=== PATIENT | male | born 1950 | race Caucasian/White ===

== ENCOUNTER 2017-04-20 12:06 | Emergency (ER) | payer OTHER, MEDICARE ==
[~2017-04-20] VITALS: Ht 193 cm; Wt 113.6 kg
[2017-04-20] MEDS ORDERED: GABAPENTIN100 MG PO (13:24)
[2017-04-20] MEDS ORDERED: GLYBURID MCR3 MG PO (13:25)
[2017-04-20] MEDS ORDERED: ASPIRIN81 MG PO (13:25)
[2017-04-20] MEDS ORDERED: ATENOLOL50 MG PO (13:26)
[2017-04-20] MEDS ORDERED: HYDRALAZINE50 MG PO ×2 (13:26→13:30)
[2017-04-20] MEDS ORDERED: D 10001000 UNIT PO (13:27)
[2017-04-20] MEDS ORDERED: SLO-NIACIN500 MG PO (13:28)
[2017-04-20] MEDS ORDERED: AMLODIPINE5 MG PO (13:28)
[2017-04-20] MEDS ORDERED: SIMVASTATIN40 MG PO (13:29)
[2017-04-20] MEDS ORDERED: CETIRIZINE10 MG PO (13:30)
[2017-04-20] MEDS ORDERED: METFORMIN850 MG PO (13:30)
[2017-04-20] MEDS ORDERED: ANTIFUNGAL EX (13:31)
[2017-04-20] MEDS ORDERED: REFRESH TEAR0.5 % OU (13:32)
[2017-04-20] MEDS ORDERED: [UNRECOGNIZED DRUG - OTHER] OU (13:34)
[2017-04-20 13:43] VITALS: BP 156/68
== END 2017-04-20 13:44 | disposition short-term general hospital (02) | DRG 125 ==
LOC: ED 12:06
DX: H21.01 Hyphema, right eye (principal); I10 Essential (primary) hypertension; E11.9 Type 2 diabetes mellitus without complications; F17.210 Nicotine dependence, cigarettes, uncomplicated

== ENCOUNTER 2018-10-24 01:13 | Emergency (ER) | payer OTHER, MEDICARE ==
[~2018-10-24] VITALS: Ht 193 cm; Wt 111.4 kg
[~2018-10-24 01:13] MED LIST: AMLODIPINE5 MG PO; ANTIFUNGAL EX; ASPIRIN81 MG PO; ATENOLOL50 MG PO; CETIRIZINE10 MG PO; D 10001000 UNIT PO; GABAPENTIN100 MG PO; GLYBURID MCR3 MG PO; HYDRALAZINE50 MG PO; METFORMIN850 MG PO; REFRESH TEAR0.5 % OU; SIMVASTATIN40 MG PO; SLO-NIACIN500 MG PO; [UNRECOGNIZED DRUG - OTHER] OU
[2018-10-24] MEDS ORDERED: PRADAXA150 MG PO (01:30)
[2018-10-24] MEDS ORDERED: BUDEPRION150 MG PO (01:31)
[2018-10-24] MEDS ORDERED: PLAVIX75 MG PO (01:32)
[2018-10-24] MEDS ORDERED: ATORVASTATIN CA40 MG PO (01:33)
[2018-10-24] MEDS ORDERED: B-121000 MC1 PO (01:33)
[2018-10-24] MEDS ORDERED: HYDROCHLOROT25 MG PO (01:34)
[2018-10-24 02:25] VITALS: BP 140/64
== END 2018-10-24 02:26 | disposition home or self-care (01) | DRG 151 ==
LOC: ED 01:13
PROC: 2Y41X5Z Packing of Nasal Region using Packing Material (ICD-10-PCS; principal; 2018-10-24)
DX: R04.0 Epistaxis (principal); I10 Essential (primary) hypertension; E11.40 Type 2 diabetes mellitus with diabetic neuropathy, unspecified; E78.00 Pure hypercholesterolemia, unspecified; I25.2 Old myocardial infarction; F17.210 Nicotine dependence, cigarettes, uncomplicated; Z95.5 Presence of coronary angioplasty implant and graft

== ENCOUNTER 2018-10-24 15:06 | Emergency (ER) | payer OTHER, MEDICARE ==
[~2018-10-24] VITALS: Ht 193 cm; Wt 111.4 kg
[~2018-10-24 15:06] MED LIST changes: +ATORVASTATIN CA40 MG PO; +B-121000 MC1 PO; +BUDEPRION150 MG PO; +HYDROCHLOROT25 MG PO; +PLAVIX75 MG PO; +PRADAXA150 MG PO
[2018-10-24 17:30] VITALS: BP 128/62
== END 2018-10-24 17:33 | disposition home or self-care (01) | DRG 151 ==
LOC: ED 15:06
DX: R04.0 Epistaxis (principal); E11.40 Type 2 diabetes mellitus with diabetic neuropathy, unspecified; I10 Essential (primary) hypertension; E78.00 Pure hypercholesterolemia, unspecified; F17.210 Nicotine dependence, cigarettes, uncomplicated; I25.2 Old myocardial infarction; Z95.5 Presence of coronary angioplasty implant and graft; Z79.82 Long term (current) use of aspirin; Z79.02 Long term (current) use of antithrombotics/antiplatelets

== ENCOUNTER 2018-12-28 09:01 | Emergency (ER) | payer OTHER, MEDICARE ==
[~2018-12-28] VITALS: Ht 193 cm; Wt 110.0 kg
[2018-12-28] MEDS ORDERED: CILOSTAZOL100 MG PO (09:33)
[2018-12-28] MEDS ORDERED: PRADAXA150 MG PO (09:34)
[2018-12-28] MEDS ORDERED: GABAPENTIN100 MG PO (09:35)
[2018-12-28] MEDS ORDERED: GENTAMICIN0.1 % EX (09:37)
[2018-12-28] MEDS ORDERED: NICOTINE T21 MG/242 TD (09:39)
[2018-12-28 10:42] VITALS: BP 139/60
== END 2018-12-28 10:42 | disposition home or self-care (01) | DRG 151 ==
LOC: ED 09:01
DX: R04.0 Epistaxis (principal); I10 Essential (primary) hypertension; E11.40 Type 2 diabetes mellitus with diabetic neuropathy, unspecified; E78.00 Pure hypercholesterolemia, unspecified; I25.2 Old myocardial infarction; F17.210 Nicotine dependence, cigarettes, uncomplicated; Z95.5 Presence of coronary angioplasty implant and graft

== ENCOUNTER 2020-06-09 19:42 | Observation (INO) | payer OTHER, MEDICARE ==
[~2020-06-09] VITALS: Ht 162.6 cm; Wt 113.0 kg
[~2020-06-09 19:42] MED LIST changes: +CILOSTAZOL100 MG PO; +GENTAMICIN0.1 % EX; +NICOTINE T21 MG/242 TD
--- NOTE | 2020-06-09 19:47 | NUR ---
BY EMS TO ROOM
[2020-06-09 20:17] LABS: HEMATOCRIT 34.6 % (39.0-50.0); HEMOGLOBIN 10.9 g/dl (14.0-18.0); IMMATURE GRANULOCYTES 0.6 % (0.0-5.0); MEAN CELL VOLUME 88.3 fL CALC (80.0-100.0); MEAN CORPUSCULAR HGB 27.8 pG CALC (26.0-32.0); MEAN CORPUSCULAR HGB CONC 31.5 g/dL CAL (32.0-36.0); NEUT# 11.25 thou/uL (1.82-7.42); RED BLOOD COUNT 3.92 mill/uL (4.70-6.10); RED CELL DISTRI WIDTH 16.7 % (11.5-15.5)
--- NOTE | 2020-06-09 20:30 | NUR ---
RESTING QUIETLY AWAITING TEST RESULTS.
[2020-06-09 20:52] LABS: MYOGLOBIN 368 ng/mL (0 - 121)
--- NOTE | 2020-06-09 21:30 | NUR ---
NO CHANGE IN EXAM.
--- NOTE | 2020-06-09 21:45 | NUR ---
EKG REPEATED BY MD'S REQUEST A LOT OF MOVEMENT ON FIRST ONE
--- NOTE | 2020-06-09 22:30 | NUR ---
AWAITING CT RESULTS VSS NAD
[2020-06-09 22:40] LABS: URINE BILIRUBIN - DIPSTICK NEGATIVE (NEGATIVE); URINE COLOR YELLOW; URINE GLUCOSE - DIPSTICK NEGATIVE (NEGATIVE); URINE KETONE NEGATIVE (NEGATIVE); URINE PROTEIN - DIPSTICK TRACE mg/dL (NEG-TRACE); URINE UROBILINOGEN - DIPSTICK 0.2 E.U./dL (0.2)
[2020-06-09 22:41] LABS: URINE LEUK ESTERASE SMALL (NEGATIVE); URINE NITRITE - DIPSTICK POSITIVE (Negative)
[2020-06-09 22:42] LABS: URINE BLOOD DIPSTICK NEGATIVE (NEGATIVE)
[2020-06-09 22:44] LABS: ALBUMIN 3.9 g/dL (3.2-5.0); ALKALINE PHOSPHATASE 86 u/l (38-126); ANION GAP 13 (6-22 (CALC)); BILIRUBIN, TOTAL 0.5 mg/dL (0.0-1.4); BUN 14 mg/dL (8-23); BUN/CREATININE RATIO 12 (12-20 (CALC)); CARBON DIOXIDE 25 mmol/l (22-30); CHLORIDE 97 mmol/l (95-108); CREATININE 1.2 mg/dL (0.7-1.3); GFR 60 ML/MIN (>=60 (CALC)); GFR FOR AFR.AMER. > 60 ML/MIN (>=60 (CALC)); POTASSIUM 3.7 mmol/l (3.5-5.1); SGOT/AST 50 u/l (19-48); SODIUM 131 mmol/l (137-146); TOTAL PROTEIN 6.9 g/dL (6.3-8.2)
[2020-06-09 22:48] LABS: URINE BACTERIA MANY hpf; URINE EPITHELIAL CELLS MODERATE EPI/hpf (0-FEW); URINE WBC 50-100 WBC/hpf (0-5)
--- NOTE | 2020-06-09 23:30 | NUR ---
AWAITING DISPOSITION. NO SIGNIFICANT CHANGE NOTED.
[2020-06-10] VITALS (8 sets, daily range): BP systolic 102–161; BP diastolic 50–82
--- NOTE | 2020-06-10 00:30 | NUR ---
C/O DYSURIA. WILL OBTAIN BLADDER SCANNER.
--- NOTE | 2020-06-10 01:10 | NUR ---
Admission Note Report Given to: ZANDRA OTERO Transported by: Wheelchair X Stretcher Transported with: X Nurse Transporter X Patent IV O2 X Blueprint Reproducer Location: ICU X MS2
--- NOTE | 2020-06-10 01:40 | NUR ---
UOP 1400 CC CLEAR YELLOW URINE. TAKEN BY STRETCHER TO ROOM 270.
--- NOTE | 2020-06-10 01:40 | NUR ---
BY STRETCHER TO FLOOR.
--- NOTE | 2020-06-10 02:00 | NUR ---
[id number]. ARRIVED TO THE FLOOR VIA STRETCHER ACCOMPANIED BY ER NURSE, ZANDRA ALVAREZ. PT. VERY WEAK AND WITH UNSTEADY GAIT AND IS UNABLE TO STAND FOR VERY LONG; ONLY ABLE TO OBTAIN ORTHOSTATICS LAYING AND SITTING;SEE DOCUMENTATION. PT. IS A/A/O X3 AND REPORTS FALLING MULTIPLE TIMES IN THE LAST WEEK OR SO, BUT DOES REPORT HAVING HX OF BALANCE ISSUES. PT. ALSO REPORTS THAT HE HAS HAD WEAKNESS TO BLE WITH ONSET YESTERDAY; PT. IS ABLE TO MOVE ALL EXTREMETIES WITHOUT DIFFICULTIES NOTED. PT. IS EDUCATED ON FALL PRECAUTIONS AND INSTRUCTED TO CALL FOR ALL OOB NEEDS AND BED ALARM SET WELL. GRANDA CATHETER INTACT AND DRAINAING AT GRAVITY LEVEL. GRANDA PLACED IN ED PRIOR TO ARRIVAL TO THE FLOOR. PT. EDUCATED ON POC, CALL LIGHT, AND ROOM; VERBALIZES UNDERSTANDING. SKIN TEAR NOTED TO LEFT HAND AND PHOTO OBTAINED AND COVERED WITH TELFA AND KERLEX; BRUISING ALSO NOTED TO LEFT ARM AND RIGHT BUTTOCK; MULTIPLE SCABS NOTED TO BLE. PT. DENIES PAIN. SNACK AND PO FLUIDS OFFERED. ENCOURAGED TO CALL FOR ANY NEEDS. CALL LIGHT IS IN REACH. WILL CONTINUE TO MONITOR.
[2020-06-10 05:22] LABS: HEMATOCRIT 34.9 % (39.0-50.0); HEMOGLOBIN 11.2 g/dl (14.0-18.0); IMMATURE GRANULOCYTES 0.5 % (0.0-5.0); MEAN CELL VOLUME 87.9 fL CALC (80.0-100.0); MEAN CORPUSCULAR HGB 28.2 pG CALC (26.0-32.0); MEAN CORPUSCULAR HGB CONC 32.1 g/dL CAL (32.0-36.0); NEUT# 11.46 thou/uL (1.82-7.42); RED BLOOD COUNT 3.97 mill/uL (4.70-6.10); RED CELL DISTRI WIDTH 16.7 % (11.5-15.5)
--- NOTE | 2020-06-10 05:35 | NUR ---
PT. ASSISTED WITH X2 STAFF TO SIT UP ON THE SIDE OF THE BED. BED ALARM ON. CALL LIGHT IS IN REACH.
[2020-06-10 05:56] LABS: ALBUMIN 3.8 g/dL (3.2-5.0); ALKALINE PHOSPHATASE 82 u/l (38-126); ANION GAP 12 (6-22 (CALC)); BILIRUBIN, TOTAL 0.6 mg/dL (0.0-1.4); BUN 13 mg/dL (8-23); BUN/CREATININE RATIO 11 (12-20 (CALC)); CARBON DIOXIDE 29 mmol/l (22-30); CHLORIDE 94 mmol/l (95-108); CREATININE 1.2 mg/dL (0.7-1.3); GFR 60 ML/MIN (>=60 (CALC)); GFR FOR AFR.AMER. > 60 ML/MIN (>=60 (CALC)); POTASSIUM 3.3 mmol/l (3.5-5.1); SGOT/AST 32 u/l (19-48); SODIUM 131 mmol/l (137-146); TOTAL PROTEIN 6.8 g/dL (6.3-8.2)
--- NOTE | 2020-06-10 07:40 | NUR ---
REPORT RECEIVED FROM ZANDRA OTERO. PT RESTING IN BED ATTEMPTING TO SIT UP FOR BREAKFAST; ASSISTED TO SITTING POSITION ON EDGE OF BED WITH FEET ON THE FLOOR WITH ONE PERSON MAX ASSIST. PT HAVING DIFFICULTY WITH BALANCE AND POSTURE REMAINING IN SITTING POSITION, BUT EVENTUALLY SITS UP WELL FOR BREAKFAST. VSS. TEMP 99.8. PT IS ALERT AND ORIENTED. DENIES PAIN, BUT C/O SOME DISCOMFORT TO BUTTOCK FROM LAYING IN BED; PT REMINDED TO TURN AND REPOSITION HIMSELF FREQUENTLY. RESPIRATIONS EVEN AND UNLABORED ON OXYGEN 2L VIA NC. PLAN OF CARE REVIEWED. PT ENCOURAGED TO VERBALIZE CONCERNS. STATES UNDERSTANDING. SAFETY MEASURES IN PLACE. CALL LIGHT WITHIN REACH.
--- NOTE | 2020-06-10 08:45 | NUR ---
DR. DAY AT BEDSIDE. LUNGS ARE COURSE; HR IRREGLAR. ABDOMEN DISTENDED AND SOFT WITH SOME TENDERNESS OVER BLADDER. GRANDA DRAINING TEA COLORED URINE IN ADEQUATE AMOUNTS. PT HAS HAD BURNING AND DIFFICULTY URINATING FOR THE LAST FEW DAYS. MD DISCUSSED PLAN OF CARE INCLUDING CONTINUEING ANTIBIOTICS AND HYDRATION. PT STATES UNDERSTANDING.
--- NOTE | 2020-06-10 13:01 | NUR ---
Patient is screened for rehab intervention and no needs are identified at this time`
--- NOTE | 2020-06-10 13:55 | NUR ---
REPOSITIONED UP INTO CHAIR WITH 2 PERSON MAX ASSIST; PARTIAL BATH PROVIDED AND LINENS CHANGED. POTASSIUM REPLACED PO AND MAG REPLACED IV. IV FLUIDS INITIATED TODAY INFUSE WITHOUT DIFFICULTY; EMS IV SITE APPEARS HEALTHY AND FLUSHES. PT RECEIVED LEVAQUIN AND TOLERATED MEDICATION WELL.
--- NOTE | 2020-06-10 17:17 | NUR ---
SITTING UP IN CHAIR; ALERT AND ORIENTED. CONTINUES TO DENY PAIN. NO REQUESTS OR CONCERNS AT THIS TIME.
--- NOTE | 2020-06-10 19:28 | NUR ---
PT. SITTING UP IN THE RECLINER WITH NO DISTRESS NOTED. DENIES NEEDS/PAIN. GRANDA CATHETER DRAINING AT GRAVITY LEVEL APPEARS KATINA COLORED WITH SEDIMENTS NOTED TO TUBING. IV SITE PATENT WITH ORDERED IVF INFUSING. UNABLE TO OBTAIN ORTHOSTATIC B/P R/T PT. BEING UNABLE TO STAND FOR THEM. VOICES NO COERNS. RE-EDUCATED ON NEEDS TO CALL FOR ALL OOB NEEDS; VERBALIZES UNDERSTANDING. CALL LIGHT IS IN REACH.
--- NOTE | 2020-06-10 20:20 | NUR ---
NEW IV SITE STARTED TO RFA X2 ATTEMPT AND EMS SITE REMOVED WITH CATHETER TIP INTACT. TOLERATED WELL. ASSSITED BACK INTO BED WITH 2 STAFF ASST.
--- NOTE | 2020-06-10 23:00 | NUR ---
RESTING IN BED WITH EYES CLOSED; RESP. EVEN AND UNLABORED. NO DISTRESS NOTED; BED ALARM FOR SAFETY; CALL LIGHT IS IN REACH.
[2020-06-11] VITALS (9 sets, daily range): BP systolic 86–115; BP diastolic 50–72
--- NOTE | 2020-06-11 04:30 | NUR ---
PT. ASSISTED TO SIT INTO HIGH FOWLERS POSITION IN BED AND COFFEE PROVIDED. DENIES NEEDS. CALL LIGHT IS IN REACH.
[2020-06-11 05:24] LABS: HEMATOCRIT 32.3 % (39.0-50.0); HEMOGLOBIN 10.3 g/dl (14.0-18.0); MEAN CELL VOLUME 88.3 fL CALC (80.0-100.0); MEAN CORPUSCULAR HGB 28.1 pG CALC (26.0-32.0); MEAN CORPUSCULAR HGB CONC 31.9 g/dL CAL (32.0-36.0); RED BLOOD COUNT 3.66 mill/uL (4.70-6.10); RED CELL DISTRI WIDTH 16.8 % (11.5-15.5)
[2020-06-11 05:46] LABS: ALKALINE PHOSPHATASE 68 u/l (38-126); ANION GAP 11 (6-22 (CALC)); BILIRUBIN, TOTAL 0.7 mg/dL (0.0-1.4); BUN 17 mg/dL (8-23); BUN/CREATININE RATIO 14 (12-20 (CALC)); CARBON DIOXIDE 24 mmol/l (22-30); CHLORIDE 100 mmol/l (95-108); CREATININE 1.2 mg/dL (0.7-1.3); GFR 60 ML/MIN (>=60 (CALC)); GFR FOR AFR.AMER. > 60 ML/MIN (>=60 (CALC)); SGOT/AST 20 u/l (19-48); SODIUM 132 mmol/l (137-146); TOTAL PROTEIN 5.6 g/dL (6.3-8.2)
--- NOTE | 2020-06-11 07:30 | NUR ---
REPORT RECEIVED FROM ZANDRA OTERO. PT CALLING FOR NURSE; INCONTINENT OF SOME BM; ASSISTED TO BSC FOR LARGE BM; AM CARE PROVIDED AND LINENS CHANGED. DENIES PAIN. RESPIRATIONS EVEN AND UNLABORED ON ROOM AIR; SPO2 94%. IV FLUIDS INFUSING WITHOUT DIFFICULTY; IV SITE APPEARS HEALTHY. GRANDA DRAINING KATINA CLOUDY URINE. PT STRONGER TODAY AND ABLE TO SIT HIMSELF UP ON EDGE OF BED WITHOUT ASSISTANCE. PLAN OF CARE REIVEWED. ENCOURAGED TO VERBALIZE CONCERNS. STATES UNDERSTANDING. SAFETY MEASURES IN PLACE. CALL LIGHT WITHIN REACH.
--- NOTE | 2020-06-11 09:38 | NUR ---
BP 100/38 HR 82. SCHEDULED ATENOLOL GIVEN; PO HYDRALAZINE AND AMLODIPINE HELD. PT RESTING IN BED ON RIGHT SIDE. REPORTS POOR APETITE THIS MORNING. LEVAQUIN INFUSING; IV SITE APPEARS HEALTHY.
--- NOTE | 2020-06-11 10:45 | NUR ---
PHYSICAL THERAPY AT BEDSIDE; PT AMBULATED WITH WALKER AND STANDBY ASSIST DOWN HALLWAY AND BACK. HYPOTENSIVE AFTER AMULATION.
--- NOTE | 2020-06-11 11:00 | NUR ---
HOME MEDS SENT TO PHARMACY.
--- NOTE | 2020-06-11 11:20 | NUR ---
ORTHOSTATIC VS OBTAINED AND NEGATIVE. SUPINE 95/58 SITTING 95/58 STANDING 99/60.
--- NOTE | 2020-06-11 11:49 | NUR ---
pt was seen for gait training and therex. Supine to sitting on EOB independently. Sit to stand at RW with CGA then ambulated down hallway 50ft x2. No LOB occured. Then performed standing heel raises 2x10, mini squats 2x10, standing hamstring curl 1x10, LAQ 2x10, hip adduction with pillow 2x10, hip abd with resistance 2x10. 02 levels between 92-99% throughout treatment. ampac=16
--- NOTE | 2020-06-11 12:02 | NUR ---
GRANDA REMOVED; PT TOLERATED WELL. URINAL PROVIDED. POTASSIUM REPLACEMENT GIVEN PO IN APPLESAUCE. PT SITTING UP ON EDGE OF BED TALKING TO ON CELL PHONE. UPDATED ON POTENTIAL DISCHARGE PLANS FOR TOMORROW.
--- NOTE | 2020-06-11 15:15 | NUR ---
VOIDED 25 ML OF CLOUDY DARK YELLOW URINE IN URINAL. WILL CONTINUE TO MONITOR OUTPUT. PT DRINKING WATER.
--- NOTE | 2020-06-11 20:21 | NUR ---
PT. SITTING UP ON THE SIDE OF THE BED WITH NO RESP. DISTRESS NOTED. DENIES NEEDS/PAIN. SCHED MEDS GIVEN AND SNACK PROVIDED. ASSESSMENT COMPLETED. IV SITE PATENT AND ORDERED IVF INFUSING WELL. UPDATED ON POC. ENCOURAGED TO CALL FOR ANY NEEDS. CALL LIGHT IS IN REACH.
--- NOTE | 2020-06-11 21:40 | NUR ---
PT. VOIDED 300MLS AND BLADDER SCANNED AND PVR IS 305MLS. WILL CONTINUE TO MONITOR.
--- NOTE | 2020-06-11 23:59 | NUR ---
PT. RESTING IN BED WITH EYES CLOSED; RESP EVEN AND UNLABORED. CALL LIGHT IS IN REACH.
--- NOTE | 2020-06-12 03:47 | NUR ---
RESTING IN BED WITH EYES CLOSED; NO DISTRESS NOTED.
[2020-06-12 04:15] VITALS: BP 112/64
--- NOTE | 2020-06-12 05:25 | NUR ---
BLADDER SCANNED AND SHOWING 485MLS THEN PT. VOIDED 200MLS OF CLEAR YELLOW URINE AND BLADDER SCANNED AND PVR IS 238MLS.
[2020-06-12 05:53] LABS: HEMATOCRIT 35.2 % (39.0-50.0); MEAN CELL VOLUME 89.8 fL CALC (80.0-100.0); MEAN CORPUSCULAR HGB 28.1 pG CALC (26.0-32.0); MEAN CORPUSCULAR HGB CONC 31.3 g/dL CAL (32.0-36.0); RED BLOOD COUNT 3.92 mill/uL (4.70-6.10); RED CELL DISTRI WIDTH 16.9 % (11.5-15.5)
[2020-06-12 06:14] LABS: BUN 22 mg/dL (8-23); BUN/CREATININE RATIO 17 (12-20 (CALC)); CARBON DIOXIDE 23 mmol/l (22-30); CHLORIDE 100 mmol/l (95-108); CREATININE 1.3 mg/dL (0.7-1.3); GFR 54 ML/MIN (>=60 (CALC)); GFR FOR AFR.AMER. > 60 ML/MIN (>=60 (CALC)); SODIUM 133 mmol/l (137-146)
[2020-06-12 06:41] LABS: ANION GAP 14 (6-22 (CALC)); MAGNESIUM 2.3 mg/dL (1.6-2.3)
[2020-06-12 08:03] VITALS: BP 148/66
--- NOTE | 2020-06-12 08:03 | NUR ---
PT SITTING ON THE SIDE OF THE BED. A&O X3. NO DISTRESS NOTED. PT REPORTS TO BE FEELING WELL THIS MORNING. ASSESSMENT COMPLETED. DISCUSSED POC. CALL LIGHT IN REACH. CONTINUE TO MONITOR.
[2020-06-12] MEDS ORDERED: BACTRIM DS1 TAB PO (10:20)
[2020-06-12 12:00] VITALS: BP 108/46
--- NOTE | 2020-06-12 12:53 | NUR ---
D/C INSTRUCTIONS GIVEN TO PT AND SPOUSE. BOTH VERBALIZED UNDERSTANDING. IV INTACT UPON REMOVAL.
--- NOTE | 2020-06-12 13:02 | NUR ---
Discharge instructions given. Patient verbalizes understanding of same. Discharged in stable condition via Wheelchair to Home with spouse and staff. All belongings sent with pt.
--- NOTE | 2020-06-12 13:03 | NUR ---
Pt was seen for therex and gait training. Pt was sitting on EOB upon entering room. Independent sit to stand at RW for gait training. Pt ambulated 60ft x2 with SBA. Then performed standing heel raises 2x10, marching 2x10, LAQ with DF 2x10, hip abduction with resistance 2x10, hip adduction 2x10, seated heel raises with manual resistance 2x10, standing hip ext 1x10. ampac=17
== END 2020-06-12 13:02 | disposition home or self-care (01) | DRG 690 ==
LOC: ED 19:42 → ED-I 06-10 → ED 06-10 01:21 → MS2 06-10 01:22
PROVIDERS: Emergency Medicine; Nurse Practitioner; Nurse Practitioner Family; ADMIT Internal Medicine; ATTEND Internal Medicine
PROC: 0T9B70Z Drainage of Bladder with Drainage Device, Via Natural or Artificial Opening (ICD-10-PCS; principal; 2020-06-09)
DX: N39.0 Urinary tract infection, site not specified (principal); E87.1 Hypo-osmolality and hyponatremia; I48.20 Chronic atrial fibrillation, unspecified; E87.6 Hypokalemia; E83.42 Hypomagnesemia; R33.9 Retention of urine, unspecified; I10 Essential (primary) hypertension; I25.10 Atherosclerotic heart disease of native coronary artery without angina pectoris; E11.40 Type 2 diabetes mellitus with diabetic neuropathy, unspecified; J44.9 Chronic obstructive pulmonary disease, unspecified; E78.5 Hyperlipidemia, unspecified; S80.812A Abrasion, left lower leg, initial encounter; S80.811A Abrasion, right lower leg, initial encounter; F17.200 Nicotine dependence, unspecified, uncomplicated; I25.2 Old myocardial infarction; B96.20 Unspecified Escherichia coli [E. coli] as the cause of diseases classified elsewhere; X58.XXXA Exposure to other specified factors, initial encounter; Z95.5 Presence of coronary angioplasty implant and graft; Z79.01 Long term (current) use of anticoagulants; Z86.14 Personal history of Methicillin resistant Staphylococcus aureus infection; Z79.84 Long term (current) use of oral hypoglycemic drugs; Z20.828 Contact with and (suspected) exposure to other viral communicable diseases
CPT/HCPCS: G0378; J1956; J3475; Q9967

== ENCOUNTER 2020-08-24 15:57 | Emergency (ER) | payer OTHER, MEDICARE ==
[~2020-08-24] VITALS: Ht 167.6 cm; Wt 108.6 kg
[~2020-08-24 15:57] MED LIST changes: +BACTRIM DS1 TAB PO
[2020-08-24 19:07] VITALS: BP 146/66
== END 2020-08-24 20:18 | disposition home or self-care (01) | DRG 921 ==
LOC: ED 15:57
PROC: 0HQ2XZZ Repair Right Ear Skin, External Approach (ICD-10-PCS; principal; 2020-08-24)
DX: L76.21 Postprocedural hemorrhage of skin and subcutaneous tissue following a dermatologic procedure (principal); C44.202 Unspecified malignant neoplasm of skin of right ear and external auricular canal; I10 Essential (primary) hypertension; E11.40 Type 2 diabetes mellitus with diabetic neuropathy, unspecified; I48.91 Unspecified atrial fibrillation; F17.210 Nicotine dependence, cigarettes, uncomplicated; I25.2 Old myocardial infarction; Y83.8 Other surgical procedures as the cause of abnormal reaction of the patient, or of later complication, without mention of misadventure at the time of the procedure; Z95.5 Presence of coronary angioplasty implant and graft; Z79.84 Long term (current) use of oral hypoglycemic drugs

== ENCOUNTER 2021-03-05 | Emergency (ER) | payer OTHER, MEDICARE | END 2021-03-06 00:20 | disposition home or self-care (01) | DRG 605 | DX: S91.114A Laceration without foreign body of right lesser toe(s) without damage to nail, initial encounter (principal); I10 Essential (primary) hypertension; E11.40 Type 2 diabetes mellitus with diabetic neuropathy, unspecified; E78.00 Pure hypercholesterolemia, unspecified; I48.91 Unspecified atrial fibrillation; F17.200 Nicotine dependence, unspecified, uncomplicated; I25.2 Old myocardial infarction; W45.8XXA Other foreign body or object entering through skin, initial encounter; Y93.I9 Activity, other involving external motion; Y92.009 Unspecified place in unspecified non-institutional (private) residence as the place of occurrence of the external cause; Z95.5 Presence of coronary angioplasty implant and graft ==

== ENCOUNTER 2021-07-08 16:09 | Emergency (ER) | payer OTHER, MEDICARE ==
[~2021-07-08] VITALS: Ht 193 cm; Wt 104.0 kg
[2021-07-08] MEDS ORDERED: ZITHROMAX250 MG PO ×2 (21:53→22:41)
[2021-07-08 23:37] VITALS: BP 124/60
== END 2021-07-08 23:37 | disposition home or self-care (01) | DRG 195 ==
LOC: ED 16:09
DX: J18.9 Pneumonia, unspecified organism (principal); I10 Essential (primary) hypertension; E11.40 Type 2 diabetes mellitus with diabetic neuropathy, unspecified; I48.91 Unspecified atrial fibrillation; E78.00 Pure hypercholesterolemia, unspecified; I25.2 Old myocardial infarction; F17.200 Nicotine dependence, unspecified, uncomplicated; Z95.5 Presence of coronary angioplasty implant and graft; Z79.84 Long term (current) use of oral hypoglycemic drugs; Z20.822 Contact with and (suspected) exposure to COVID-19

== ENCOUNTER 2022-06-07 18:51 | Emergency (ER) | payer OTHER, MEDICARE ==
[~2022-06-07] VITALS: Ht 193 cm; Wt 102.0 kg
[~2022-06-07 18:51] MED LIST changes: +ZITHROMAX250 MG PO
[2022-06-07 19:40] LABS: IMMATURE GRANULOCYTES 0.2 % (0.0-5.0); MEAN CORPUSCULAR HGB 29.1 pG CALC (26.0-32.0); MEAN CORPUSCULAR HGB CONC 33.3 g/dL CAL (32.0-36.0); NEUT# 3.64 thou/uL (1.82-7.42); RED BLOOD COUNT 3.09 mill/uL (4.70-6.10); RED CELL DISTRI WIDTH 17.3 % (11.5-15.5)
[2022-06-07 19:41] LABS: MEAN CELL VOLUME 87.4 fL CALC (80.0-100.0)
[2022-06-07 19:53] LABS: ALBUMIN 3.7 g/dL (3.2-5.0); ALKALINE PHOSPHATASE 78 u/l (38-126); ANION GAP 11 (6-22 (CALC)); BILIRUBIN, TOTAL 0.3 mg/dL (0.0-1.4); BUN 21 mg/dL (8-23); BUN/CREATININE RATIO 16 (12-20 (CALC)); CARBON DIOXIDE 25 mmol/l (22-30); CHLORIDE 100 mmol/l (95-108); CREATININE 1.3 mg/dL (0.7-1.3); GFR FOR AFR.AMER. > 60 ML/MIN (>=60 (CALC)); GFR OTHER RACES 54 ML/MIN (>=60 (CALC)); SGOT/AST 13 u/l (19-48); SODIUM 133 mmol/l (137-146); TOTAL PROTEIN 6.9 g/dL (6.3-8.2)
[2022-06-07] MEDS ORDERED: KLOR-CON M2020 MEQ PO (20:10)
[2022-06-07] MEDS ORDERED: BACTRIM DS1 TAB PO (20:10)
[2022-06-07] MEDS ORDERED: OMNICEF300 MG PO (20:10)
[2022-06-07 20:30] VITALS: BP 128/53
== END 2022-06-07 20:30 | disposition home or self-care (01) | DRG 603 ==
LOC: ED 18:51
PROVIDERS: Nurse Practitioner
DX: L03.116 Cellulitis of left lower limb (principal); H60.11 Cellulitis of right external ear; E11.621 Type 2 diabetes mellitus with foot ulcer; L97.529 Non-pressure chronic ulcer of other part of left foot with unspecified severity; I10 Essential (primary) hypertension; E11.40 Type 2 diabetes mellitus with diabetic neuropathy, unspecified; I25.10 Atherosclerotic heart disease of native coronary artery without angina pectoris; I48.91 Unspecified atrial fibrillation; F10.10 Alcohol abuse, uncomplicated; F17.200 Nicotine dependence, unspecified, uncomplicated; Z95.5 Presence of coronary angioplasty implant and graft

== ENCOUNTER 2022-12-07 21:30 | Emergency (ER) | payer OTHER, MEDICARE ==
[~2022-12-07] VITALS: Ht 193 cm; Wt 102.0 kg
[~2022-12-07 21:30] MED LIST changes: +KLOR-CON M2020 MEQ PO; +OMNICEF300 MG PO
[2022-12-07 21:43] VITALS: BP 134/58
[2022-12-07 21:46] VITALS: BP 127/53
[2022-12-07 22:00] VITALS: BP 128/59
[2022-12-07 22:16] VITALS: BP 128/59
[2022-12-07] MEDS ORDERED: OMNI-PAC300 MG PO (22:20)
== END 2022-12-07 22:29 | disposition home or self-care (01) | DRG 605 ==
LOC: ED 21:30
PROC: 0HQCXZZ Repair Left Upper Arm Skin, External Approach (ICD-10-PCS; principal; 2022-12-07)
DX: S41.112A Laceration without foreign body of left upper arm, initial encounter (principal); W01.0XXA Fall on same level from slipping, tripping and stumbling without subsequent striking against object, initial encounter; E11.40 Type 2 diabetes mellitus with diabetic neuropathy, unspecified; Z79.84 Long term (current) use of oral hypoglycemic drugs; I25.2 Old myocardial infarction; Z95.5 Presence of coronary angioplasty implant and graft; I48.91 Unspecified atrial fibrillation; I10 Essential (primary) hypertension; Z85.828 Personal history of other malignant neoplasm of skin

== ENCOUNTER 2023-01-31 12:08 | Inpatient (IN) | payer OTHER, MEDICARE ==
[~2023-01-31] VITALS: Ht 193 cm; Wt 107.2 kg
[2023-01-31] VITALS (71 sets, daily range): BP systolic 73–140; BP diastolic 41–84
[~2023-01-31 12:08] MED LIST changes: +OMNI-PAC300 MG PO
[2023-01-31 13:53] LABS: BASO% 0.1 % (0-3); EOS% 0.2 % (0-8); HEMATOCRIT 25.5 % (39.0-50.0); HEMOGLOBIN 7.9 g/dl (14.0-18.0); IMMATURE GRANULOCYTES 0.6 % (0.0-5.0); LYMPH% 10.2 % (15-41); MEAN CORPUSCULAR HGB 28.6 pG CALC (26.0-32.0); MONO% 8.6 % (2-13); NEUT# 6.45 thou/uL (1.82-7.42); NEUT% 80.3 % (42-76); RED BLOOD COUNT 2.76 mill/uL (4.70-6.10); RED CELL DISTRI WIDTH 17.6 % (11.5-15.5)
[2023-01-31 13:55] LABS: MEAN CELL VOLUME 92.4 fL CALC (80.0-100.0)
[2023-01-31 14:09] LABS: CREATININE 1.7 mg/dL (0.7-1.3); POTASSIUM 3.4 mmol/l (3.5-5.1); TOTAL PROTEIN 6.3 g/dL (6.3-8.2)
[2023-01-31 14:11] LABS: ALBUMIN 3.1 g/dL (3.2-5.0); BILIRUBIN, TOTAL 0.2 mg/dL (0.2-1.3)
[2023-01-31] MEDS ORDERED: PRADAXA150 M1 PO (18:18)
[2023-01-31 18:20] LABS: HEMATOCRIT 28.3 % (39.0-50.0); HEMOGLOBIN 8.8 g/dl (14.0-18.0)
[2023-01-31 18:27] LABS: INTERNATIONAL NORMALIZED RATIO 1.7 RATIO (0.7-1.3); PROTHROMBIN TIME 16.4 SECONDS (9.0-12.5)
[2023-01-31] MEDS ORDERED: HYDRALAZINE50 MG PO (20:36)
[2023-01-31] MEDS ORDERED: GABAPENTIN400 M2 PO (21:36)
[2023-02-01] VITALS (67 sets, daily range): BP systolic 86–137; BP diastolic 47–105
[2023-02-01 05:09] LABS: BASO% 0.1 % (0-3); HEMATOCRIT 25.7 % (39.0-50.0); IMMATURE GRANULOCYTES 0.5 % (0.0-5.0); MEAN CELL VOLUME 91.1 fL CALC (80.0-100.0); MEAN CORPUSCULAR HGB 28.4 pG CALC (26.0-32.0); MEAN CORPUSCULAR HGB CONC 31.1 g/dL CAL (32.0-36.0); MONO% 13.3 % (2-13); NEUT# 6.35 thou/uL (1.82-7.42); NEUT% 75.1 % (42-76); RED BLOOD COUNT 2.82 mill/uL (4.70-6.10); RED CELL DISTRI WIDTH 17.8 % (11.5-15.5)
[2023-02-01 05:32] LABS: BILIRUBIN, TOTAL 0.2 mg/dL (0.2-1.3); CREATININE 1.5 mg/dL (0.7-1.3); TOTAL PROTEIN 5.8 g/dL (6.3-8.2)
[2023-02-01 05:36] LABS: POTASSIUM 4.1 mmol/l (3.5-5.1)
[2023-02-01] MEDS ORDERED: METFORMIN HYDR850 MG PO (15:41)
[2023-02-01] MEDS ORDERED: ATENOLOL25 MG PO (15:48)
[2023-02-01] MEDS ORDERED: PREDNISONE20 MG PO (15:52)
[2023-02-01] MEDS ORDERED: COZAAR50 MG PO (15:54)
[2023-02-01] MEDS ORDERED: B-121000 MC6 PO (15:54)
[2023-02-01] MEDS ORDERED: VITAMIN D-31000 UNIT PO (15:57)
[2023-02-01] MEDS ORDERED: NORVASC10 M1 PO (15:58)
[2023-02-01] MEDS ORDERED: LIPITOR80 M1 PO (15:58)
[2023-02-01] MEDS ORDERED: HYDROCHLOROTHIA50 MG PO (15:59)
[2023-02-01] MEDS ORDERED: GUAIFENESIN400 MG PO (16:00)
[2023-02-01] MEDS ORDERED: CILOSTAZOL100 MG PO (16:00)
[2023-02-02 03:12] VITALS: BP 109/66
[2023-02-02 05:37] VITALS: BP 126/70
[2023-02-02 05:50] LABS: HEMATOCRIT 23.8 % (39.0-50.0); HEMOGLOBIN 7.5 g/dl (14.0-18.0); MEAN CELL VOLUME 90.5 fL CALC (80.0-100.0); MEAN CORPUSCULAR HGB 28.5 pG CALC (26.0-32.0); MEAN CORPUSCULAR HGB CONC 31.5 g/dL CAL (32.0-36.0); RED BLOOD COUNT 2.63 mill/uL (4.70-6.10); RED CELL DISTRI WIDTH 17.8 % (11.5-15.5)
[2023-02-02 05:57] LABS: ALBUMIN 3.2 g/dL (3.2-5.0); CREATININE 1.4 mg/dL (0.7-1.3); MAGNESIUM 1.9 mg/dL (1.6-2.3); POTASSIUM 3.7 mmol/l (3.5-5.1); TOTAL PROTEIN 6.4 g/dL (6.3-8.2)
[2023-02-02 10:13] VITALS: BP 118/61
[2023-02-02 15:05] VITALS: BP 110/53
[2023-02-02 18:00] VITALS: BP 131/73
[2023-02-02 23:25] VITALS: BP 121/66
[2023-02-03 03:23] VITALS: BP 121/55
[2023-02-03 05:36] VITALS: BP 128/61
[2023-02-03 06:03] LABS: HEMATOCRIT 22.9 % (39.0-50.0); HEMOGLOBIN 7.4 g/dl (14.0-18.0); MEAN CELL VOLUME 90.9 fL CALC (80.0-100.0); MEAN CORPUSCULAR HGB 29.4 pG CALC (26.0-32.0); MEAN CORPUSCULAR HGB CONC 32.3 g/dL CAL (32.0-36.0); RED BLOOD COUNT 2.52 mill/uL (4.70-6.10); RED CELL DISTRI WIDTH 17.7 % (11.5-15.5)
[2023-02-03 06:18] LABS: ALBUMIN 3.3 g/dL (3.2-5.0); ALKALINE PHOSPHATASE 61 u/l (38-126); ANION GAP 9 (6-22 (CALC)); BUN 31 mg/dL (8-23); BUN/CREATININE RATIO 28 (12-20 (CALC)); CARBON DIOXIDE 23 mmol/l (22-30); CHLORIDE 107 mmol/l (95-108); CREATININE 1.1 mg/dL (0.7-1.3); GFR FOR AFR.AMER. > 60 ML/MIN (>=60 (CALC)); GFR OTHER RACES > 60 ML/MIN (>=60 (CALC)); POTASSIUM 3.7 mmol/l (3.5-5.1); SGOT/AST 22 u/l (19-48); SODIUM 136 mmol/l (137-146); TOTAL PROTEIN 6.3 g/dL (6.3-8.2)
[2023-02-03 06:27] LABS: BILIRUBIN, TOTAL 0.1 mg/dL (0.2-1.3)
[2023-02-03 10:51] VITALS: BP 145/53
[2023-02-03] MEDS ORDERED: PREDNISONE20 MG PO (12:56)
[2023-02-03] MEDS ORDERED: OMNICEF300 MG PO (12:57)
[2023-02-03 14:40] VITALS: BP 141/59
[2023-02-03 17:36] VITALS: BP 145/52
[2023-02-03 23:16] VITALS: BP 139/66
[2023-02-04 03:28] VITALS: BP 133/60
[2023-02-04 05:54] VITALS: BP 142/68
[2023-02-04 06:19] LABS: HEMATOCRIT 24.1 % (39.0-50.0); HEMOGLOBIN 7.6 g/dl (14.0-18.0); MEAN CELL VOLUME 91.6 fL CALC (80.0-100.0); MEAN CORPUSCULAR HGB 28.9 pG CALC (26.0-32.0); MEAN CORPUSCULAR HGB CONC 31.5 g/dL CAL (32.0-36.0); RED BLOOD COUNT 2.63 mill/uL (4.70-6.10); RED CELL DISTRI WIDTH 17.7 % (11.5-15.5)
[2023-02-04 06:39] LABS: ALBUMIN 3.5 g/dL (3.2-5.0); ALKALINE PHOSPHATASE 66 u/l (38-126); ANION GAP 12 (6-22 (CALC)); BILIRUBIN, TOTAL 0.3 mg/dL (0.2-1.3); BUN 32 mg/dL (8-23); BUN/CREATININE RATIO 29 (12-20 (CALC)); CARBON DIOXIDE 25 mmol/l (22-30); CHLORIDE 103 mmol/l (95-108); CREATININE 1.1 mg/dL (0.7-1.3); GFR FOR AFR.AMER. > 60 ML/MIN (>=60 (CALC)); GFR OTHER RACES > 60 ML/MIN (>=60 (CALC)); MAGNESIUM 2.1 mg/dL (1.6-2.3); POTASSIUM 3.9 mmol/l (3.5-5.1); SGOT/AST 26 u/l (19-48); SODIUM 137 mmol/l (137-146); TOTAL PROTEIN 6.7 g/dL (6.3-8.2)
[2023-02-04 09:31] VITALS: BP 152/68
== END 2023-02-04 12:20 | disposition home health service (06) | DRG 871 ==
LOC: ED 12:08 → ED-I 12:27 → ED 12:27 → ED-I 13:50 → ED 18:40 → MS2 18:41 → ICU 18:41 → MS2 02-01 14:00
PROVIDERS: Family Medicine; ADMIT Internal Medicine; ATTEND Internal Medicine
PROC: 3E033XZ Introduction of Vasopressor into Peripheral Vein, Percutaneous Approach (ICD-10-PCS; principal; 2023-01-31)
DX: A41.9 Sepsis, unspecified organism (principal); J18.9 Pneumonia, unspecified organism; J96.01 Acute respiratory failure with hypoxia; J44.0 Chronic obstructive pulmonary disease with (acute) lower respiratory infection; J44.1 Chronic obstructive pulmonary disease with (acute) exacerbation; R65.20 Severe sepsis without septic shock; I95.9 Hypotension, unspecified; I12.9 Hypertensive chronic kidney disease with stage 1 through stage 4 chronic kidney disease, or unspecified chronic kidney disease; E11.22 Type 2 diabetes mellitus with diabetic chronic kidney disease; N18.9 Chronic kidney disease, unspecified; E11.40 Type 2 diabetes mellitus with diabetic neuropathy, unspecified; I48.91 Unspecified atrial fibrillation; D64.9 Anemia, unspecified; E78.00 Pure hypercholesterolemia, unspecified; I25.2 Old myocardial infarction; F17.200 Nicotine dependence, unspecified, uncomplicated; Z95.5 Presence of coronary angioplasty implant and graft; Z86.14 Personal history of Methicillin resistant Staphylococcus aureus infection; Z79.01 Long term (current) use of anticoagulants; Z85.118 Personal history of other malignant neoplasm of bronchus and lung; Z79.60 Long term (current) use of unspecified immunomodulators and immunosuppressants; Z92.21 Personal history of antineoplastic chemotherapy; Z92.3 Personal history of irradiation
CPT/HCPCS: J0692; J1756

== ENCOUNTER 2023-02-17 06:42 | Inpatient (IN) | payer OTHER, MEDICARE ==
[~2023-02-17] VITALS: Ht 193 cm; Wt 107.2 kg
[2023-02-17] VITALS (14 sets, daily range): BP systolic 75–122; BP diastolic 44–68
[~2023-02-17 06:42] MED LIST changes: +ATENOLOL25 MG PO; +B-121000 MC6 PO; +COZAAR50 MG PO; +GABAPENTIN400 M2 PO; +GUAIFENESIN400 MG PO; +HYDROCHLOROTHIA50 MG PO; +LIPITOR80 M1 PO; +METFORMIN HYDR850 MG PO; +NORVASC10 M1 PO; +PRADAXA150 M1 PO; +PREDNISONE20 MG PO; +VITAMIN D-31000 UNIT PO
--- NOTE | 2023-02-17 07:03 | NUR ---
PT ARRIVED VIA EMS, A/O X4 IN NO APPARENT DISTRESS. PT TRANSFERRED TO RM 13.
[2023-02-17 07:07] LABS: BASO% 0.3 % (0-3); EOS% 0.7 % (0-8); HEMATOCRIT 24.9 % (39.0-50.0); HEMOGLOBIN 7.6 g/dl (14.0-18.0); IMMATURE GRANULOCYTES 0.5 % (0.0-5.0); MEAN CELL VOLUME 90.9 fL CALC (80.0-100.0); MEAN CORPUSCULAR HGB 27.7 pG CALC (26.0-32.0); MEAN CORPUSCULAR HGB CONC 30.5 g/dL CAL (32.0-36.0); MONO% 9.5 % (2-13); NEUT# 4.83 thou/uL (1.82-7.42); RED BLOOD COUNT 2.74 mill/uL (4.70-6.10); RED CELL DISTRI WIDTH 18.8 % (11.5-15.5)
[2023-02-17 07:33] LABS: ALBUMIN 3.2 g/dL (3.2-5.0); BILIRUBIN, TOTAL 0.4 mg/dL (0.2-1.3); CREATININE 1.6 mg/dL (0.7-1.3); POTASSIUM 3.7 mmol/l (3.5-5.1); TOTAL PROTEIN 6.2 g/dL (6.3-8.2)
[2023-02-17 07:45] LABS: INTERNATIONAL NORMALIZED RATIO 1.7 RATIO (0.7-1.3); PROTHROMBIN TIME 16.6 SECONDS (9.0-12.5)
--- NOTE | 2023-02-17 07:50 | NUR ---
pt sleeping no distress, family at bedside
[2023-02-17 08:08] LABS: ACT PARTIAL THROMBO TIME 105.5 SECONDS (20.0-32.5)
--- NOTE | 2023-02-17 08:57 | NUR ---
pt resting, no distress, family at bedside,
--- NOTE | 2023-02-17 09:47 | NUR ---
pt resting, no distress, pt family at bedside, pending admission
--- NOTE | 2023-02-17 10:15 | NUR ---
unable to verify medications, per she does not have a current list, and states that some medications changed from last admission.
--- NOTE | 2023-02-17 10:34 | NUR ---
report called to [facility] nurse, all questions anwsered at this time, pt transported
--- NOTE | 2023-02-17 10:44 | NUR ---
RECEIVE ADMISSION FROM ER. REPORT FROM [facility] NURSE.PATIENT ALERT AND ORIENTED X3. PT ACCOMPANIE FOR . PATIENT AND IS EDUCATED ABOUD ADMISSIION, MEDICATIONS AND NURSING PLAN FOR TODAY. PT REFER UNDERSTAND. SAFETY AND FALL PRECAUTIONS IN PLACE. CALL LIGHT WITHIN IN REACH.
--- NOTE | 2023-02-17 11:31 | NUR ---
CONTACTED DR CHARLES'S OFFICE IN REFERENCE TO A PHYSICIAN CONSULT. I SPOKE CASH WARD AT 1131 HRS.
--- NOTE | 2023-02-17 12:00 | NUR ---
PATIENT STABLE AT THE TIME OF THIS NOTE. SAFETY AND FALL PRECAUTIONS IN PLACE. CALL LIGHT WITHIN IN REACH.
--- NOTE | 2023-02-17 16:14 | NUR ---
PATIENT RESTING IN BED EYES CLOSED, NO DISCOMFORTS NOTED AT THIS TIME, BREATHING EVEN UNLABORED, CALL LIGHT IN REACH.
--- NOTE | 2023-02-17 19:00 | NUR ---
PORSCHE RECEIVED FROM ZANDRA WOOD.
--- NOTE | 2023-02-17 21:30 | NUR ---
PATIENT SITTING UP IN BED, ALERT AND ORIENTED. VSS, NO DISTRESS NOTED. ASSESSMENT COMPLETE. INSTRUCTED PATIENT TO CALL FOR ASSISTANCE AN URINE SAMPLE AND STOOL SAMPLE IS NEEDED; PATIENT VERBALIZES UNDERSTANDING. PATIENT CONCERNED ABOUT PRADAXA DOSE. EXPLAINED THAT MEDICATION IS ON HOLD HEMOGLOBIN IN LOW AND STOOL SAMPLES ARE NEED TO TEST FOR BLOOD; PATIENT VERBALIZES UNDERSTANDING. NO FURTHER CONCERNS EXPRESSED AT THIS TIME. CALL LIGHT WITHIN REACH.
[2023-02-18] VITALS (11 sets, daily range): BP systolic 102–137; BP diastolic 43–101
--- NOTE | 2023-02-18 00:50 | NUR ---
PATIENT AWAKE. RESTING COMFORTABLY. NO DISTRESS NOTED, DENIES PAIN. CALL LIGHT WITHIN REACH.
--- NOTE | 2023-02-18 04:41 | NUR ---
PATIENT SITTING AT BEDSIDE. DENIES PAIN AT THIS TIME, NO DISTRESS NOTED. URINE SPECIMEN OBTAINED AT THIS TIME. CALL LIGHT WITHIN REACH.
[2023-02-18 06:03] LABS: URINE BILIRUBIN - DIPSTICK NEGATIVE (NEGATIVE); URINE BLOOD DIPSTICK NEGATIVE (NEGATIVE); URINE COLOR YELLOW; URINE GLUCOSE - DIPSTICK NEGATIVE (NEGATIVE); URINE KETONE NEGATIVE (NEGATIVE); URINE LEUK ESTERASE NEGATIVE (NEGATIVE); URINE PROTEIN - DIPSTICK TRACE mg/dL (NEG-TRACE); URINE SPECIFIC GRAVITY 1.015; URINE UROBILINOGEN - DIPSTICK 0.2 E.U./dL (0.2)
[2023-02-18 06:08] LABS: URINE NITRITE - DIPSTICK NEGATIVE (Negative)
[2023-02-18 06:16] LABS: BASO% 0.5 % (0-3); EOS% 1.3 % (0-8); HEMATOCRIT 22.5 % (39.0-50.0); IMMATURE GRANULOCYTES 0.3 % (0.0-5.0); LYMPH% 17.8 % (15-41); MEAN CELL VOLUME 91.1 fL CALC (80.0-100.0); MEAN CORPUSCULAR HGB 28.3 pG CALC (26.0-32.0); MEAN CORPUSCULAR HGB CONC 31.1 g/dL CAL (32.0-36.0); MONO% 11.3 % (2-13); NEUT# 2.62 thou/uL (1.82-7.42); NEUT% 68.8 % (42-76); RED BLOOD COUNT 2.47 mill/uL (4.70-6.10); RED CELL DISTRI WIDTH 18.6 % (11.5-15.5)
[2023-02-18 06:19] LABS: ALBUMIN 3.1 g/dL (3.2-5.0); BILIRUBIN, TOTAL 0.5 mg/dL (0.2-1.3); CREATININE 1.5 mg/dL (0.7-1.3); MAGNESIUM 1.9 mg/dL (1.6-2.3); POTASSIUM 3.4 mmol/l (3.5-5.1); TOTAL PROTEIN 6.1 g/dL (6.3-8.2)
--- NOTE | 2023-02-18 06:43 | NUR ---
DR. DAY NOTIFIED OF HGB 7.0, DECREASE FROM 7.6 ON 02/17. NO ORDERS TO TRANSFUSE PATIENT IS ADMITTED WITH CHF. WANTS DR. CHARLES TO SEE PATIENT BEFORE TRANSFUSION IS GIVEN.
--- NOTE | 2023-02-18 08:00 | NUR ---
PATIENT TAKEN TO HAVE ECHO DONE.
--- NOTE | 2023-02-18 08:00 | NUR ---
GOT REPORT FROM BEADER NURSE. PATIENT ASSESSED. AOX3. NO COMPLAINTS AT THIS TIME. FALL PRECAUTIONS IN PLACE. CALL LIGHT AND BEDSIDE TABLE WITH IN REACH. ADVISED TO CALL IF NEEDING ANYTHING.
--- NOTE | 2023-02-18 11:48 | NUR ---
PATIENT TOLERATING BLOOD TRANSFUSION. NO COMPLAINT OR CONCERNS AT THIS TIME. IV SITE IS HEALTHY LOOKING AND NO PAIN OR DISCOMFORT AT SITE.
--- NOTE | 2023-02-18 12:00 | NUR ---
PATIENT IS SITTING IN CHAIR, HAS BLOOD TRANSFUSION STILL INFUSING. NO DISCOMFORT OR DISTRESS AT THIS TIME.
--- NOTE | 2023-02-18 13:47 | NUR ---
PATIENT COMPLETED BLOOD TRANSFUSION. PATIENT TOLERATED WELL. NO COMPLAINTS OR DISCOMFORT AT THIS TIME.
--- NOTE | 2023-02-18 16:30 | NUR ---
GAVE REPORT TO NURSE TAKING OVER CARE OF PATIENT. NO FURTHER QUESTIONS OR CONCERNS FROM ON-COMING NURSE.
--- NOTE | 2023-02-18 20:30 | NUR ---
REPORT RECEIVED. PT SITTING ON THE EDGE OF HIS BED. TALKING ON THE TELEPHONE. PRESENT. PT IS ALERT AND ORIENTED. VERY PLEASANT. TOP BED RAILS UP. BED IS LOCKED. CALL LIGHT IN REACH.
[2023-02-19 00:23] VITALS: BP 121/64
--- NOTE | 2023-02-19 01:33 | NUR ---
PT SLEEPING WELL WITH 02 ON VIA NASAL CANNULA. PURWICK IN PLACE. DRAINING WELL CLEAR YELLOW URINE. TOP BED RAILS UP. CALL LIGHT IN REACH
[2023-02-19 04:45] VITALS: BP 151/49
[2023-02-19 05:50] LABS: BASO% 0.3 % (0-3); EOS% 2.1 % (0-8); HEMATOCRIT 23.7 % (39.0-50.0); HEMOGLOBIN 7.5 g/dl (14.0-18.0); IMMATURE GRANULOCYTES 0.3 % (0.0-5.0); LYMPH% 15.3 % (15-41); MEAN CELL VOLUME 90.1 fL CALC (80.0-100.0); MEAN CORPUSCULAR HGB 28.5 pG CALC (26.0-32.0); MEAN CORPUSCULAR HGB CONC 31.6 g/dL CAL (32.0-36.0); MONO% 10.1 % (2-13); NEUT# 2.35 thou/uL (1.82-7.42); NEUT% 71.9 % (42-76); RED BLOOD COUNT 2.63 mill/uL (4.70-6.10)
[2023-02-19 06:10] LABS: ALBUMIN 2.8 g/dL (3.2-5.0); BILIRUBIN, TOTAL 0.4 mg/dL (0.2-1.3); MAGNESIUM 1.9 mg/dL (1.6-2.3); POTASSIUM 3.7 mmol/l (3.5-5.1); TOTAL PROTEIN 5.5 g/dL (6.3-8.2)
[2023-02-19 06:15] LABS: CREATININE 1.4 mg/dL (0.7-1.3)
[2023-02-19 06:49] VITALS: BP 103/59
--- NOTE | 2023-02-19 08:03 | NUR ---
PT RESTING IN HIGH FOWLERS POSITION. A/OX3 VS COMPLETED. HEART RHYTHM ON TELE AFIB . RESPIRAITONS ON 3L NC. IV SITE NOTED TO RFA.20. PT DENIES ADDITIONAL NEEDS AT THE TIME ALL SAFETY PRECAUTIONS IN PLACE.
[2023-02-19 11:35] VITALS: BP 136/75
[2023-02-19] MEDS ORDERED: LASIX 40 MG TAB40 MG PO (12:17)
[2023-02-19] MEDS ORDERED: VIBRAMYCIN100 M2 PO (12:17)
--- NOTE | 2023-02-19 12:17 | NUR ---
PT RESTING IN HIGH FOWLERS PT TO RECIVED ADDITIONAL DOSE OF LASIX AND IRON IV PER KELL.
[2023-02-19] MEDS ORDERED: KLOR-CON M2020 MEQ PO (12:18)
--- NOTE | 2023-02-19 16:18 | NUR ---
Discharge instructions given. Patient verbalizes understanding of same. Discharged in stable condition via Wheelchair to Home with staff. All belongings sent with pt. iv removed tele removed.
== END 2023-02-19 16:14 | disposition home health service (06) | DRG 291 ==
LOC: ED 06:42 → ED-I 07:42 → ED 07:42 → ED-I 09:00 → ED 09:21 → MS2 09:22
PROVIDERS: Emergency Medicine; Nurse Practitioner Family; ADMIT Internal Medicine; ATTEND Internal Medicine
PROC: 30233N1 Transfusion of Nonautologous Red Blood Cells into Peripheral Vein, Percutaneous Approach (ICD-10-PCS; principal; 2023-02-18)
DX: I13.0 Hypertensive heart and chronic kidney disease with heart failure and stage 1 through stage 4 chronic kidney disease, or unspecified chronic kidney disease (principal); I50.31 Acute diastolic (congestive) heart failure; J96.10 Chronic respiratory failure, unspecified whether with hypoxia or hypercapnia; L03.116 Cellulitis of left lower limb; E11.22 Type 2 diabetes mellitus with diabetic chronic kidney disease; N18.30 Chronic kidney disease, stage 3 unspecified; D63.8 Anemia in other chronic diseases classified elsewhere; E11.40 Type 2 diabetes mellitus with diabetic neuropathy, unspecified; E11.51 Type 2 diabetes mellitus with diabetic peripheral angiopathy without gangrene; I25.10 Atherosclerotic heart disease of native coronary artery without angina pectoris; I48.91 Unspecified atrial fibrillation; J44.9 Chronic obstructive pulmonary disease, unspecified; E78.5 Hyperlipidemia, unspecified; J40 Bronchitis, not specified as acute or chronic; I25.2 Old myocardial infarction; G47.33 Obstructive sleep apnea (adult) (pediatric); F17.200 Nicotine dependence, unspecified, uncomplicated; S41.012A Laceration without foreign body of left shoulder, initial encounter; S81.801A Unspecified open wound, right lower leg, initial encounter; S81.802A Unspecified open wound, left lower leg, initial encounter; W19.XXXA Unspecified fall, initial encounter; Z99.81 Dependence on supplemental oxygen; Z91.81 History of falling; Z85.118 Personal history of other malignant neoplasm of bronchus and lung; Z95.5 Presence of coronary angioplasty implant and graft; Z92.3 Personal history of irradiation; Z92.21 Personal history of antineoplastic chemotherapy; Z87.01 Personal history of pneumonia (recurrent); Z79.02 Long term (current) use of antithrombotics/antiplatelets
CPT/HCPCS: J1756; P9016

== ENCOUNTER 2024-10-06 12:53 | Observation (INO) | payer OTHER, MEDICARE ==
[2024-10-06] VITALS (22 sets, daily range): BP systolic 84–139; BP diastolic 36–95
[~2024-10-06] VITALS: Ht 193 cm; Wt 114.0 kg
[~2024-10-06 12:53] MED LIST changes: +ADVAIR DISK1 INH; +ALBUTEROL SUL0.083 % IN; +GUAIFENESI100 MG/51 PO; +IRON (FERROUS S50 MG PO; +LASIX 40 MG TAB40 MG PO; +LEVOFLOXACIN750 MG PO; +NEBULIZER COMPRESSOR; +PREDNISONE10 MG PO; +TENORMIN25 MG PO; +VANTIN200 M1 PO; +VENTOLIN HFA108 MCG IN; +VIBRAMYCIN100 M2 PO; +ZYRTEC10 M5 PO
[2024-10-06] MEDS ORDERED: SODIUM CHLORIDE 0.9% 1,000 ML IV ONE (14:00)
[2024-10-06] MEDS ORDERED: VANCOMYCIN HCL 1 GM in SODIUM CHLORIDE 0.9% 250 ML IV ONE (14:00)
[2024-10-06] MEDS ORDERED: CEFEPIME HYDROCHLORIDE 1 GM in SODIUM CHLORIDE 0.9% 50 ML IV ONE (14:00)
[2024-10-06] MEDS ORDERED: VANCOMYCIN HCL 1 GM/VIAL IV ONE (14:09)
[2024-10-06 14:17] LABS: BASO% 0.4 % (0-3); EOS% 1.6 % (0-8); HEMATOCRIT 34.6 % (39.0-50.0); HEMOGLOBIN 10.9 g/dl (14.0-18.0); IMMATURE GRANULOCYTES 0.3 % (0.0-5.0); LYMPH% 13.1 % (15-41); MEAN CELL VOLUME 97.2 fL CALC (80.0-100.0); MEAN CORPUSCULAR HGB 30.6 pG CALC (26.0-32.0); MEAN CORPUSCULAR HGB CONC 31.5 g/dL CAL (32.0-36.0); NEUT# 6.72 thou/uL (1.82-7.42); NEUT% 75.6 % (42-76); RED BLOOD COUNT 3.56 mill/uL (4.70-6.10); RED CELL DISTRI WIDTH 17.4 % (11.5-15.5)
[2024-10-06 15:34] LABS: BILIRUBIN, TOTAL 0.7 mg/dL (0.2-1.3); CREATININE 1.7 mg/dL (0.7-1.3); POTASSIUM 3.3 mmol/l (3.5-5.1); TOTAL PROTEIN 5.8 g/dL (6.3-8.2)
[2024-10-06 15:40] LABS: URINE BILIRUBIN - DIPSTICK Negative (NEGATIVE); URINE BLOOD DIPSTICK Negative (NEGATIVE); URINE GLUCOSE - DIPSTICK Negative (NEGATIVE); URINE KETONE Negative (NEGATIVE); URINE LEUK ESTERASE Negative (NEGATIVE); URINE NITRITE - DIPSTICK Negative (Negative); URINE PH 5.5 (4.5-8.0); URINE PROTEIN - DIPSTICK 30 mg/dL (NEG-TRACE); URINE SPECIFIC GRAVITY 1.015; URINE UROBILINOGEN - DIPSTICK 0.2 E.U./dL (0.2)
[2024-10-06 15:46] LABS: URINE COLOR Yellow
[2024-10-06 15:48] LABS: URINE RBC 0-2 RBC/hpf (0-5); URINE SQUAMOUS EPITHELIAL CELL FEW EPI/hpf (0-FEW); URINE WBC 0-2 WBC/hpf (0-5)
[2024-10-06 15:49] LABS: C-REACTIVE PROTEIN 19.1 mg/dL (0-0.9)
[2024-10-06] MEDS ORDERED: ACETAMINOPHEN 325 MG/TAB PO PRN (18:35)
[2024-10-06] MEDS ORDERED: MAGNESIUM HYDROXIDE 30 ML UDC PO PRN (18:35)
[2024-10-06] MEDS ORDERED: GABAPENTIN 300 MG/CAP PO SCH (21:00)
[2024-10-06] MEDS ORDERED: ATENOLOL 25 MG TAB PO SCH (21:00)
[2024-10-06] MEDS ORDERED: GABAPENTIN 100 MG/CAP PO SCH (21:00)
[2024-10-06] MEDS ORDERED: DABIGATRAN ETEXILATE MESYLATE 150 MG PO SCH (21:00)
[2024-10-07] VITALS: BP 114/51
[2024-10-07 02:00] VITALS: BP 131/57
[2024-10-07] MEDS ORDERED: CEFEPIME HYDROCHLORIDE 2 GM in SODIUM CHLORIDE 0.9% 100 ML IV SCH ×2 (02:00→14:00)
[2024-10-07 04:16] VITALS: BP 137/57
[2024-10-07 05:16] LABS: HEMATOCRIT 35.2 % (39.0-50.0); MEAN CORPUSCULAR HGB 31.3 pG CALC (26.0-32.0); MEAN CORPUSCULAR HGB CONC 31.3 g/dL CAL (32.0-36.0); RED BLOOD COUNT 3.52 mill/uL (4.70-6.10); RED CELL DISTRI WIDTH 17.6 % (11.5-15.5)
[2024-10-07 05:28] LABS: BILIRUBIN, TOTAL 0.6 mg/dL (0.2-1.3); CREATININE 1.6 mg/dL (0.7-1.3); MAGNESIUM 2.5 mg/dL (1.6-2.3); TOTAL PROTEIN 6.3 g/dL (6.3-8.2)
[2024-10-07 05:32] LABS: POTASSIUM 4.2 mmol/l (3.5-5.1)
[2024-10-07] MEDS ORDERED: LOSARTAN Potassium 50 MG/TAB PO SCH (09:00)
[2024-10-07 13:00] VITALS: BP 121/49
[2024-10-07 17:00] VITALS: BP 111/59
[2024-10-07] MEDS ORDERED: ATORVASTATIN CALCIUM 40 MG/TAB PO SCH (21:00)
[2024-10-07 22:50] VITALS: BP 137/48
[2024-10-08 00:01] VITALS: BP 102/40
[2024-10-08 00:34] VITALS: BP 114/53
[2024-10-08 04:04] VITALS: BP 137/49
[2024-10-08 04:34] LABS: HEMATOCRIT 31.7 % (39.0-50.0); MEAN CELL VOLUME 97.2 fL CALC (80.0-100.0); MEAN CORPUSCULAR HGB 30.7 pG CALC (26.0-32.0); MEAN CORPUSCULAR HGB CONC 31.5 g/dL CAL (32.0-36.0); RED BLOOD COUNT 3.26 mill/uL (4.70-6.10); RED CELL DISTRI WIDTH 17.1 % (11.5-15.5)
[2024-10-08 04:53] LABS: ALBUMIN 2.7 g/dL (3.2-5.0); BILIRUBIN, TOTAL 0.8 mg/dL (0.2-1.3); CREATININE 1.3 mg/dL (0.7-1.3); MAGNESIUM 2.3 mg/dL (1.6-2.3); TOTAL PROTEIN 5.8 g/dL (6.3-8.2)
[2024-10-08 08:00] VITALS: BP 136/55
[2024-10-08 08:01] VITALS: BP 136/55
[2024-10-08] MEDS ORDERED: MEDDOSEPAK PO (08:30)
[2024-10-08 09:43] VITALS: BP 136/55
== END 2024-10-08 10:56 | disposition home health service (06) | DRG 603 ==
LOC: ED 12:53 → ED-I 15:40 → ED 15:57 → ICU 15:58 → MS2 15:58 → ICU 18:11
PROVIDERS: Nurse Practitioner; ADMIT Internal Medicine; ATTEND Internal Medicine
DX: L03.115 Cellulitis of right lower limb (principal); I12.9 Hypertensive chronic kidney disease with stage 1 through stage 4 chronic kidney disease, or unspecified chronic kidney disease; E11.22 Type 2 diabetes mellitus with diabetic chronic kidney disease; N18.31 Chronic kidney disease, stage 3a; D63.1 Anemia in chronic kidney disease; I48.91 Unspecified atrial fibrillation; E11.40 Type 2 diabetes mellitus with diabetic neuropathy, unspecified; E11.51 Type 2 diabetes mellitus with diabetic peripheral angiopathy without gangrene; R00.1 Bradycardia, unspecified; J44.9 Chronic obstructive pulmonary disease, unspecified; I25.10 Atherosclerotic heart disease of native coronary artery without angina pectoris; G47.33 Obstructive sleep apnea (adult) (pediatric); S90.121A Contusion of right lesser toe(s) without damage to nail, initial encounter; X58.XXXA Exposure to other specified factors, initial encounter; F17.200 Nicotine dependence, unspecified, uncomplicated; Z85.118 Personal history of other malignant neoplasm of bronchus and lung; Z92.21 Personal history of antineoplastic chemotherapy; Z92.3 Personal history of irradiation; Z95.5 Presence of coronary angioplasty implant and graft
CPT/HCPCS: J0692

== ENCOUNTER 2024-10-23 16:29 | Emergency (ER) | payer OTHER, MEDICARE ==
[~2024-10-23] VITALS: Ht 193 cm; Wt 113.0 kg
[~2024-10-23 16:29] MED LIST changes: +MEDDOSEPAK PO
[2024-10-23 16:44] VITALS: BP 123/68
[2024-10-23] MEDS ORDERED: CEFEPIME HYDROCHLORIDE 1 GM in SODIUM CHLORIDE 0.9% 50 ML IV ONE (17:00)
[2024-10-23] MEDS ORDERED: VANCOMYCIN HCL 1 GM in SODIUM CHLORIDE 0.9% 250 ML IV ONE (17:00)
[2024-10-23] MEDS ORDERED: MUCINEX600 MG PO (17:02)
[2024-10-23 17:19] LABS: BASO% 0.7 % (0-3); EOS% 1.8 % (0-8); HEMATOCRIT 34.9 % (39.0-50.0); HEMOGLOBIN 10.7 g/dl (14.0-18.0); IMMATURE GRANULOCYTES 1.8 % (0.0-5.0); LYMPH% 18.5 % (15-41); MEAN CELL VOLUME 98.6 fL CALC (80.0-100.0); MEAN CORPUSCULAR HGB 30.2 pG CALC (26.0-32.0); MEAN CORPUSCULAR HGB CONC 30.7 g/dL CAL (32.0-36.0); MONO% 13.6 % (2-13); NEUT# 3.47 thou/uL (1.82-7.42); NEUT% 63.6 % (42-76); RED BLOOD COUNT 3.54 mill/uL (4.70-6.10); RED CELL DISTRI WIDTH 18.1 % (11.5-15.5)
[2024-10-23 18:16] LABS: CREATININE 1.6 mg/dL (0.7-1.3); POTASSIUM 3.7 mmol/l (3.5-5.1); TOTAL PROTEIN 6.7 g/dL (6.3-8.2)
[2024-10-23 18:17] LABS: ALBUMIN 3.6 g/dL (3.2-5.0); BILIRUBIN, TOTAL 0.4 mg/dL (0.2-1.3)
[2024-10-23 18:20] LABS: C-REACTIVE PROTEIN 2.2 mg/dL (0-0.9)
[2024-10-23 20:14] VITALS: BP 123/68
== END 2024-10-23 20:14 | disposition home or self-care (01) | DRG 603 ==
LOC: ED 16:29
PROVIDERS: Nurse Practitioner
DX: L03.116 Cellulitis of left lower limb (principal); I13.0 Hypertensive heart and chronic kidney disease with heart failure and stage 1 through stage 4 chronic kidney disease, or unspecified chronic kidney disease; E11.22 Type 2 diabetes mellitus with diabetic chronic kidney disease; I50.9 Heart failure, unspecified; N18.30 Chronic kidney disease, stage 3 unspecified; J44.9 Chronic obstructive pulmonary disease, unspecified; Z85.118 Personal history of other malignant neoplasm of bronchus and lung; F17.210 Nicotine dependence, cigarettes, uncomplicated
CPT/HCPCS: J0692

== ENCOUNTER 2025-01-19 14:38 | Emergency (ER) | payer OTHER, MEDICARE ==
[~2025-01-19] VITALS: Ht 193 cm; Wt 122.0 kg
[2025-01-19] VITALS (22 sets, daily range): BP systolic 92–137; BP diastolic 32–113
[~2025-01-19 14:38] MED LIST changes: +MUCINEX600 MG PO
[2025-01-19 15:22] LABS: BASO% 0.2 % (0-3); EOS% 1.8 % (0-8); IMMATURE GRANULOCYTES 1.1 % (0.0-5.0); LYMPH% 21.4 % (15-41); MEAN CORPUSCULAR HGB 31.8 pG CALC (26.0-32.0); MEAN CORPUSCULAR HGB CONC 27.9 g/dL CAL (32.0-36.0); NEUT# 3.52 thou/uL (1.82-7.42); NEUT% 64.5 % (42-76); RED BLOOD COUNT 1.79 mill/uL (4.70-6.10)
[2025-01-19 15:30] LABS: HEMATOCRIT 20.4 % (39.0-50.0); HEMOGLOBIN 5.7 g/dl (14.0-18.0)
[2025-01-19 15:37] LABS: ALBUMIN 2.9 g/dL (3.2-5.0); ALKALINE PHOSPHATASE 103 u/l (38-126); ANION GAP 11 (6-22 (CALC)); BILIRUBIN, TOTAL 0.3 mg/dL (0.2-1.3); BUN 31 mg/dL (8-23); BUN/CREATININE RATIO 16 (12-20 (CALC)); CHLORIDE 112 mmol/l (95-108); CREATININE 1.9 mg/dL (0.7-1.3); ESTIMATED GFR 36 ML/MIN (>=90 (CALC)); POTASSIUM 3.8 mmol/l (3.5-5.1); SGOT/AST 24 u/l (19-48); SODIUM 139 mmol/l (137-146); TOTAL PROTEIN 5.8 g/dL (6.3-8.2)
[2025-01-19] MEDS ORDERED: FUROSEMIDE 40 MG/4 ML SDV IV ONE (15:40)
[2025-01-19 15:41] LABS: CARBON DIOXIDE 20 mmol/l (22-30)
[2025-01-19 16:11] LABS: URINE BILIRUBIN - DIPSTICK Negative (NEGATIVE); URINE BLOOD DIPSTICK Negative (NEGATIVE); URINE COLOR Yellow; URINE GLUCOSE - DIPSTICK Negative (NEGATIVE); URINE KETONE Negative (NEGATIVE); URINE LEUK ESTERASE Negative (NEGATIVE); URINE NITRITE - DIPSTICK Negative (Negative); URINE PH 5.5 (4.5-8.0); URINE PROTEIN - DIPSTICK Trace mg/dL (NEG-TRACE); URINE SPECIFIC GRAVITY 1.015; URINE UROBILINOGEN - DIPSTICK 0.2 E.U./dL (0.2)
[2025-01-19] MEDS ORDERED: SODIUM CHLORIDE 0.9% 250 ML IV ONE (16:35)
[2025-01-19] MEDS ORDERED: Pantoprazole Sodium 40 MG VIAL (Protonix) IV ONE (17:15)
[2025-01-19] MEDS ORDERED: POTASSIUM CHLORIDE 20 MEQ/TAB PO ONE (18:25)
== END 2025-01-19 18:45 | disposition short-term general hospital (02) | DRG 812 ==
LOC: ED 14:38
PROVIDERS: Nurse Practitioner
PROC: 30233N1 Transfusion of Nonautologous Red Blood Cells into Peripheral Vein, Percutaneous Approach (ICD-10-PCS; principal; 2025-01-19)
DX: D62 Acute posthemorrhagic anemia (principal); R00.1 Bradycardia, unspecified; R60.1 Generalized edema; I11.0 Hypertensive heart disease with heart failure; I50.9 Heart failure, unspecified; J44.9 Chronic obstructive pulmonary disease, unspecified; F17.200 Nicotine dependence, unspecified, uncomplicated; Z85.118 Personal history of other malignant neoplasm of bronchus and lung
CPT/HCPCS: J1940; J2470; P9016